=== PATIENT | female | born 1965 | race Caucasian/White ===

== ENCOUNTER 2022-11-07 13:37 | Outpatient (OUT) | payer MEDICARE, MEDICAID, SELFPAY ==
--- NOTE | 2022-11-07 15:14 | P.CN_ITS ---
Consult Note: HPI Data of Consult Patient: new to practice Consult date: 11/07/22 Requesting Physician: Deng Jackson MD Primary Care Provider: Naveen Frances MD Consult Narrative Reason for consult: Low back, right leg pain Narrative: Cleo [id number] who presents for evaluation. Worsening low back pain that ra diates into right leg. No recent imaging available for review. Engages in provider directed home exercise program, which has not helped for >6 weeks. Utilizes various medications, including percocet, from PCP. Had stroke several years ago and pain has continually worsened. Denies adverse medication side effects. cc:: CC: Deng Jackson MD Review of Systems ROS Status of ROS 10 or more systems reviewed and unremarkable except as noted in history and below Exam Constitutional Common normals: no apparent distress, oriented x3 and healthy appearing Respiratory Common normals: normal respiratory effort Effort & inspection: able to speak in complete sentences Back & Pelvis Other: Tenderness to lumbar spine and paraspinal musculature. Pain elicited with flexion, extension, lateral rotation. Facet loading maneuvers positive bilaterally. Strength unremarkable throughout bilateral lower extremities except for decreased strength of 4/5 in right quadriceps femoris, anterior tibialis. Sensation unremarkable throughout bilateral lower extremities except for dysesthesia in right l4, L5 dermatomal distributions. Gait nonantalgic. Extremity Common normals: normal to inspection Neuro Common normals: oriented x3, CN's II-XII intact bilaterally and no focal motor deficits Psych Common normals: mental status grossly normal and cooperative Assessment and Plan Assessment and Plan (1) Lumbar spondylosis: (2) Lumbar stenosis with neurogenic claudication: (3) Bilateral hip pain: Plan Cleo [id number] who presents for evaluation. Worsening low back and right leg pain. Worsened since stroke several years ago. Previously underwent imaging and injection therapy with benefit, but nothing in the last several years. Given her symptoms and failure to respond to >6 weeks of conservative management, as noted, i will have her undergo lumbar MRI without contrast, XR sacrum, Xr bilateral hips. She is in agreement. Medications reviewed, and no changes made. She will continue her pain medicines from her PCP. Follow up after imaging.
== END 2022-11-07 13:38 | disposition home or self-care (01) ==
LOC: PM 13:37
PROVIDERS: PCP Family Medicine; Visit Provider Anesthesiology
DX: M47.816 Spondylosis without myelopathy or radiculopathy, lumbar region (principal); M25.551 Pain in right hip; M25.552 Pain in left hip; M48.062 Spinal stenosis, lumbar region with neurogenic claudication
CPT/HCPCS: G0463